=== PATIENT | female | born 1995 | race Caucasian/White ===

== ENCOUNTER → 2022-04-18 08:00 | Outpatient (CLI) | payer OTHER, MEDICAID, SELFPAY ==
[2022-04-18 08:47] LABS: Influenza A - CEPHEID Flu A NEGATIVE (NEGATIVE); Influenza B - CEPHEID Flu B NEGATIVE (NEGATIVE)
[2022-04-18 08:53] LABS: COVID-19 CEPHEID PCR (VTM/NP) Negative (Negative)
== END ==
PROVIDERS: Visit Provider Physician Assistant
DX: Z20.822 Contact with and (suspected) exposure to COVID-19 (principal); R05.9 Cough, unspecified
CPT/HCPCS: 0240U

== ENCOUNTER 2022-08-21 00:38 | Emergency (ER) | payer OTHER, MEDICAID, SELFPAY ==
[2022-08-21 00:54] VITALS: BP 125/76; PULSE 94; RESP 18; TEMP 36.4; O2SAT 96; BMI 34.4
[2022-08-21 01:21] LABS: COVID19 -Nasal RAPID Negative (Negative)
--- NOTE | 2022-08-21 01:33 | ED.EAR ---
HPI - Ear Problem General Chief complaint: Ear Stated complaint: EAR PAIN AND THROAT HURTS Time Seen by Provider: 08/21/22 01:33 Source: patient Mode of arrival: Ambulatory Limitations: no limitations History of Present Illness HPI Narrative: Patient has experienced sinus congestion for 2 days. She has left ear pain. She has mild sore throat. She has occasional cough. She takes Zyrtec for allergies. She also takes Mucinex and she has just started nasal spray. She had fever and chills a few days ago, not associated with this current symptoms. She has no wheezing, no dyspnea. She has no chest discomfort. She has no GI symptoms. She has no rash. She is a nonsmoker. Related Data Home Medications Medication Instructions Recorded Confirmed sertraline 50 mg tablet 50 mg PO DAILY 03/06/22 08/21/22 Allergies Allergy/AdvReac Type Severity Reaction Status Date / Time No Known Drug Allergies Allergy Unverified 07/16/22 13:14 Review of Systems Constitutional Constitutional: Reports as per HPI and Reports system reviewed and no additional complaints, except as documented Patient History Medical History (Updated 08/21/22 @ 02:26 by Milan Vela MD) Allergic rhinitis Surgical History (Updated 08/21/22 @ 02:26 by Milan Vela MD) History of tonsillectomy Social History Smoking Status: Never smoker Smoking Status: Never smoker Substance Use Type: does not use Exam Initial Vital Signs Initial Vital Signs: Vital Signs Temperature 97.6 F 08/21/22 00:54 Pulse Rate 94 H 08/21/22 00:54 Respiratory Rate 18 08/21/22 00:54 Blood Pressure 125/76 08/21/22 00:54 Pulse Oximetry 96 08/21/22 00:54 Oxygen Delivery Method 08/21/22 00:54 Const General: cooperative, healthy appearing, well developed and well groomed [facility] Head: normocephalic and atraumatic Ears: TM abnormal (Both TMs are retracted with clear fluid behind the TM.) and other (Right cerumen impaction was irrigated clear by the patient's nurse. ) Nose: nares normal Face and sinus: sinuses nontender Mouth: oral mucosae normal Throat: posterior oropharynx normal Eyes General: Yes appearance normal, both eyes and all related structures Pupils: PERRL EOM: EOM intact bilaterally Neck Neck: normal visual inspection Chest Chest: normal inspection of the chest Resp Auscultation: clear to auscultation bilaterally Course Orders Ordered: ED Orders 08/21/22 00:52 COVID19 -Nasal RAPID/Pre-Proc Stat Vital Signs Vital signs: Vital Signs - 8 hr 08/21/22 00:54 Temperature 97.6 F Pulse Rate 94 H Respiratory Rate 18 Blood Pressure 125/76 Pulse Oximetry 96 Oxygen Delivery Method Room Air Medical Decision Making Lab Data Labs: Lab Results 08/21/22 Range/Units 00:52 SARS-CoV-2 (PCR) Negative (Negative) Discharge Plan Departure Patient Disposition: Home Clinical Impression: Acute dysfunction of both eustachian tubes, Impacted cerumen Instructions: Cerumen Impaction, DI for Eustachian Tube Dysfunction-Adult Activity Restrictions/Additional Instructions: Tylenol or Advil as needed for pain. Continue Zyrtec, Mucinex, and you nasal sprays. Seem your sinuses several times daily as we discussed. Follow-up with your doctor if not improved in 3-4 days, return here as necessary. Prescriptions: No Action sertraline 50 mg tablet 50 mg PO DAILY Referrals: Miscellaneous,Doctor, [Primary Care Provider] -
[2022-08-21] MEDS: LIDOCAINE/PRILOCAINE 5 GM TOP (01:43)
[2022-08-21 02:30] VITALS: BP 116/63; PULSE 90; RESP 18; O2SAT 98
== END 2022-08-21 02:31 | disposition home or self-care (01) ==
PROVIDERS: Emergency Provider Emergency Medicine
DX: H69.83 Other specified disorders of Eustachian tube, bilateral (principal); H61.20 Impacted cerumen, unspecified ear; J02.9 Acute pharyngitis, unspecified; Z20.822 Contact with and (suspected) exposure to COVID-19
CPT/HCPCS: 69209; 87635; 99284; C9803

== ENCOUNTER → 2023-02-20 12:14 | Outpatient (CLI) | payer OTHER, MEDICAID, SELFPAY ==
[2023-02-20 13:39] LABS: Influenza A - CEPHEID Flu A NEGATIVE (NEGATIVE); Influenza B - CEPHEID Flu B NEGATIVE (NEGATIVE); Respiratory Syncytial Virus Negative (Negative)
[2023-02-20 13:51] LABS: COVID-19 CEPHEID 4-PLEX PCR Negative (Negative)
== END ==
PROVIDERS: Visit Provider Nurse Practitioner Family
DX: R50.9 Fever, unspecified (principal); J02.9 Acute pharyngitis, unspecified; Z20.822 Contact with and (suspected) exposure to COVID-19
CPT/HCPCS: 0241U; 87070

== ENCOUNTER → 2023-12-16 09:03 | Outpatient (CLI) | payer OTHER, MEDICAID, SELFPAY ==
[2023-12-16 09:46] LABS: Pregnancy Test Urine Negative (Negative)
[2023-12-16 11:09] LABS: Urine Chlamydia NOT DETECTED; Urine N gonorrhoeae NOT DETECTED
== END ==
PROVIDERS: Visit Provider Physician Assistant
DX: Z11.3 Encounter for screening for infections with a predominantly sexual mode of transmission (principal); R30.0 Dysuria
CPT/HCPCS: 81002; 81025; 87086; 87491; 87591

== ENCOUNTER 2024-06-17 20:21 | Emergency (ER) | payer MEDICAID, SELFPAY ==
[2024-06-17 20:23] VITALS: BP 128/82; PULSE 67; RESP 16; TEMP 36.4; O2SAT 100; BMI 32.6
[2024-06-17] MEDS: OXYCODONE/ACETAMINOPHEN 5/325 TABLET 1 TAB PO (21:33)
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
[2024-06-17] MEDS: CIPROFLOXACIN/DEXAMETH OTIC SUSP 4 DROPS EAR-RIGHT (22:48)
[2024-06-17] MEDS: HYDROCODONE/ACET 5/325 PREPACK 1 BOTTLE MISC (22:49)
[2024-06-17 22:52] VITALS: BP 124/68; PULSE 74; RESP 16; TEMP 36.6; O2SAT 99
== END 2024-06-17 22:53 | disposition home or self-care (01) ==
PROVIDERS: Emergency Provider Emergency Medicine
DX: H60.91 Unspecified otitis externa, right ear (principal)
CPT/HCPCS: 99283

== ENCOUNTER 2024-12-03 16:50 | Emergency (ER) | payer SELFPAY ==
[2024-12-03] VITALS (10 sets, daily range): BP systolic 114–142; BP diastolic 65–92; PULSE 83–118; RESP 22; TEMP 36.7–37; O2SAT 95–98; BMI 34.4
--- NOTE | 2024-12-03 16:58 | DI.RAD.S_ITS ---
PROCEDURE: XR CHEST 1V INDICATIONS: eval. for PNA TECHNIQUE: One view of the chest was acquired. COMPARISON: None. FINDINGS: Surgical changes and devices: None. Lungs and pleura: Left lower lobe opacity. Mediastinum: Mediastinal contours appear normal. Heart size is normal. Bones and chest wall: No suspicious bony lesions. Overlying soft tissues appear unremarkable. IMPRESSION: Left lower lobe opacity concerning for pneumonia. Dictated by: Eliezer Willis M.D. on 12/03/2024 at 18:58 Approved by: Eliezer Willis M.D. on 12/03/2024 at 18:58
[2024-12-03 17:42] LABS: Influenza A - CEPHEID Flu A NEGATIVE (NEGATIVE); Influenza B - CEPHEID Flu B NEGATIVE (NEGATIVE); Respiratory Syncytial Virus Negative (Negative)
[2024-12-03 17:44] LABS: COVID-19 CEPHEID 4-PLEX PCR Negative (Negative)
--- NOTE | 2024-12-03 18:15 | ED_ITS ---
HPI - URI/Sore Throat General Chief Complaint: Upper Respiratory Symptoms Stated Complaint: thinks she might have pneumonia Time Seen by Provider: 12/03/24 16:58 Source: patient Mode of arrival: Ambulatory History of Present Illness HPI Narrative: 29-year-old female complains of 4 days duration of dry cough with muscle aches, no sore throat, took Tylenol prior to arrival, one episode of loose stool, no black or red stools. No dysuria or frequency of urination. Children in the household with recent upper respiratory chest cold like symptoms as well. No history of asthma or chronic heart or lung problems. She denies chest pain, de nies shortness of breath. Related Data Home Medications Medication Instructions Recorded Confirmed sertraline 50 mg tablet 50 mg PO DAILY 03/06/22 12/16/23 Previous Rx's Medication Instructions Recorded fluconazole 150 mg tablet 150 mg PO Q3D 2 doses #2 tabs 12/16/23 azithromycin 250 mg tablet 250 mg PO DAILY 4 days #4 tabs 12/03/24 Allergies Allergy/AdvReac Type Severity Reaction Status Date / Time No Known Drug Allergies Allergy Unverified 12/16/23 09:09 Patient History Medical History (Updated 12/03/24 @ 19:59 by Fran Aguilar MD) Allergic rhinitis Surgical History (Updated 08/21/22 @ 02:26 by Milan Vela MD) History of tonsillectomy Social History Smoking Status: Never smoker Smoking Status: Never smoker alcohol intake frequency: other Exam Narrative Exam Narrative: GENERAL: Well-developed patient, in mild distress. HEAD: Atraumatic. Normocephalic. EYES: Pupils equal round and reactive. Extraocular motions intact. No scleral icterus. No injection or drainage. ENT: Nose without bleeding, purulent drainage. Throat without erythema, tonsillar hypertrophy or exudate. Airway patent. NECK: Trachea midline. Non tender CARDIOVASCULAR: Fast rate regular rhythm, no murmur obvious, no gallops, or rubs. RESPIRATORY: Clear to auscultation. Breath sounds equal bilaterally. No wheezes, rales, or rhonchi. GASTROINTESTINAL: Abdomen soft, non-tender, nondistended. EXTREMITIES: No edema or joint tenderness. BACK: Nontender without deformity or crepitance. No flank tenderness. NEURO: AOx3. Motor functions grossly nonfocal SKIN: No rash or erythema of visible areas Initial Vital Signs Initial Vital Signs: Vital Signs Temperature 98.6 F 12/03/24 17:06 Pulse Rate 118 H 12/03/24 17:06 Respiratory Rate 22 12/03/24 17:06 Blood Pressure 142/92 H 12/03/24 17:06 Pulse Oximetry 95 12/03/24 17:06 Oxygen Delivery Method Room Air 12/03/24 17:06 Course Orders Ordered: Discontinued Medications Azithromycin (Azithromycin 250 Mg Tablet) 500 mg PO NOW ONE Stop: 12/03/24 19:55 Last Admin: 12/03/24 20:05 Dose: 500 mg Documented By: MAULIK Ibuprofen (Ibuprofen 400 Mg Tablet) 400 mg PO NOW ONE Stop: 12/03/24 18:24 Last Admin: 12/03/24 18:39 Dose: 400 mg Documented By: MAULIK Vital Signs Vital signs: Vital Signs - 8 hr 12/03/24 17:06 Temperature 98.6 F Pulse Rate 118 H Respiratory Rate 22 Blood Pressure 142/92 H Pulse Oximetry 95 Oxygen Delivery Method Room Air MDM - URI/Sore Throat Lab Data Attestation: I reviewed the patient's lab results. Lab results narrative: COVID negative, flu a and B negative, RSV negative Labs: Lab Results 12/03/24 Range/Units 17:00 SARS-CoV-2 (PCR) Negative (Negative) Influenza A (RT-PCR) Flu a negative (NEGATIVE) Influenza B (RT-PCR) Flu b negative (NEGATIVE) RSV (PCR) Negative (Negative) MDM Narrative Medical decision making narrative: 29-year-old female without chronic heart or lung problems, 4 days duration dry cough, muscle aches, malaise. Tylenol taken prior to arrival. Initial sinus tachycardia 118 noted, without specific treatment while in the emergency department her heart rate improved 95-100 range. When offered she would like Motrin, oral ibuprofen dose ordered. COVID, influenza, RSV swab negative. Chest x-ray report pending Chest x-ray single view. Impression: ?Left lower lobe opacity concerning for pneumonia. ? See radiology report. Patient no longer takes SSRI medications, oral dose azithromycin given now, pre scription for further azithromycin sent to her pharmacy, for further treatment of community-acquired pneumonia Discharge Plan Departure Patient Disposition: Home Clinical Impression: Pneumonia Activity Restrictions/Additional Instructions: Recent 4 days cough and muscle aches, no fever on triage by Tylenol taken prior to arrival. Initial fast heart rate improved. COVID/flu/RSV swab was negative. Chest x-ray over-read by radiologist, believes that there is a small left lower lobe infiltrate, small area of pneumonia. We discussed the chest x-ray finding, 1st dose of oral azithromycin antibiotic given in the emergency department, further antibiotic course to be sent to your pharmacy. Continue taking Tylenol and or Motrin as needed for muscle aches pains. Take plenty of fluids to stay well hydrated. Recheck symptoms with your regular doctor on Saturday. Return earlier to this/nearest emergency department for any change worsening symptoms or any concerns prior Prescriptions: New azithromycin 250 mg tablet 250 mg PO DAILY 4 Days Qty: 4 0RF Rx Instructions: start on day 2 of therapy No Action sertraline 50 mg tablet 50 mg PO DAILY fluconazole 150 mg tablet 150 mg PO Q3D Qty: 2 0RF Referrals: Miscellaneous,Doctor, MD [Primary Care Provider] - Stand Alone Forms: Patient Portal/API/Survey
[2024-12-03] MEDS: IBUPROFEN 400 MG TABLET PO (18:39)
[2024-12-03] MEDS: AZITHROMYCIN 250 MG TABLET 500 MG PO (20:05)
== END 2024-12-03 20:12 | disposition home or self-care (01) ==
PROVIDERS: Emergency Medicine; Emergency Provider Emergency Medicine
DX: J18.9 Pneumonia, unspecified organism (principal)
CPT/HCPCS: 0241U; 71045; 99283